=== PATIENT | female | born 1980 | race African-American/Black ===

== ENCOUNTER 2020-06-20 14:16 | Emergency (ER) | payer OTHER ==
[2020-06-20 14:27] VITALS: TEMP 98.1; BMI 24.3
[2020-06-20] MEDS ORDERED: SODIUM CHLORIDE 1,000 ML IV STA (15:15)
[2020-06-20] MEDS ORDERED: METOCLOPRAMIDE HCL INJECTION 10 MG/2 ML VIAL IVPB ONE (15:15)
[2020-06-20 16:43] LABS: BASO % 0.5 % (0-2.0); EOS % 0.7 % (0-4.5); HEMATOCRIT 39.5 % (32.4-45.2); HEMOGLOBIN 12.7 GM/dL (10.7-15.3); LYMPH % 22.6 % (8-40); MCH 27.8 pg (25.7-33.7); MCHC 32.1 g/dl (32.0-36.0); MEAN CELL VOLUME 86.5 fl (80-96); MONO % 8.5 % (3.8-10.2); NEUT % 67.7 % (42.8-82.8); PLATELET COUNT 289 K/MM3 (134-434); RBC 4.56 M/mm3 (3.60-5.2); RDW 15.7 % (11.6-15.6); WHITE BLOOD COUNT 7.6 K/mm3 (4.0-10.0)
[2020-06-20 16:54] LABS: PH,URINE 5.5 (5.0-8.0); URINE APPEARANCE CLEAR; URINE BILIRUBIN NEGATIVE (NEGATIVE); URINE COLOR YELLOW; URINE GLUCOSE (UA) NEGATIVE (NEGATIVE); URINE KETONE TRACE (NEGATIVE); URINE LEUK ESTERASE NEGATIVE (NEGATIVE); URINE NITRITE NEGATIVE (NEGATIVE); URINE PROTEIN NEGATIVE (NEGATIVE)
[2020-06-20 16:58] LABS: POTASSIUM 4.4 mmol/L (3.5-5.1)
[2020-06-20 17:01] LABS: CALCIUM 8.6 mg/dL (8.5-10.1)
[2020-06-20 17:02] LABS: ALBUMIN 3.7 g/dl (3.4-5.0); BLOOD UREA NITROGEN 9.1 mg/dL (7-18)
[2020-06-20 17:05] LABS: CREATININE 0.7 mg/dL (0.55-1.3)
[2020-06-20 17:06] LABS: BILIRUBIN,TOTAL 0.3 mg/dL (0.2-1)
[2020-06-20 17:07] LABS: TOT PROT 7.3 g/dl (6.4-8.2)
[2020-06-20 17:40] LABS: HCG,QUALITATIVE URINE Negative
[2020-06-20 18:25] VITALS: BP 130/77; PULSE 83
== END 2020-06-20 18:25 | disposition home or self-care (01) ==
LOC: JER 14:16
PROC: 3E033GC Introduction of Other Therapeutic Substance into Peripheral Vein, Percutaneous Approach (ICD-10-PCS; principal; 2020-06-20)
PROC: 3E0337Z Introduction of Electrolytic and Water Balance Substance into Peripheral Vein, Percutaneous Approach (ICD-10-PCS; 2020-06-20)
DX: G89.29 Other chronic pain (principal); R51.9 Headache, unspecified
CPT/HCPCS: 36415; 70450-TC; 80053; 81003; 84703; 85025; 87086; 99284-25